=== PATIENT | female | born 1995 | race Caucasian/White ===

== ENCOUNTER 2017-11-08 15:14 | Emergency (ER) | END 2017-11-08 19:31 | disposition home or self-care (01) ==

== ENCOUNTER 2017-12-15 15:30 | Emergency (ER) | END 2017-12-16 00:10 | disposition home or self-care (01) ==

== ENCOUNTER 2018-06-11 02:30 | Inpatient (IN) | END 2018-06-11 21:25 | disposition home or self-care (01) | DRG 778 ==

== ENCOUNTER 2018-06-17 22:35 | Inpatient (IN) | END 2018-06-20 13:15 | disposition home or self-care (01) | DRG 775 ==

== ENCOUNTER 2018-11-28 06:56 | Emergency (ER) | payer MEDICAID ==
[~2018-11-28] VITALS: Wt 80.0 kg
[~2018-11-28 06:56] MED LIST: PREN-19 PO
[2018-11-28] MEDS ORDERED: SOD CHLORIDE 0.9% 1,000 ML IV STA (07:33)
[2018-11-28] MEDS ORDERED: ONDANSETRON 4 MG INJ IV STA (07:33)
[2018-11-28] MEDS ORDERED: KETOROLAC 30 MG INJ IV STA (07:33)
[2018-11-28] MEDS ORDERED: FAMO-96 PO (09:52)
[2018-11-28] MEDS ORDERED: ACET325T33 PO (09:52)
[2018-11-28 10:15] VITALS: BP 97/56; PULSE 77; RESP 20
--- NOTE | 2018-11-28 11:24 | ERD ---
ER Documentation Chief Complaint Chief Complaint ap x 1 week HPI 23-year-old female presenting with abdominal pain times 1 week. Denies medical problems. Patient has had vomiting. She denies any changes to urination. LNMP November 05. No medication for symptoms. Denies medical problems. NKDA. Surgical history denies. Social history denies ROS All systems reviewed and are negative except as per history of present illness. Medications Home Meds Active Scripts Famotidine* (Pepcid*) 20 Mg Tablet, 20 MG PO BID for 4 Days, #30 TAB Prov:SEBAS BRODY PA-C 11/28/18 Acetaminophen* (Tylenol*) 325 Mg Tablet, 2 TAB PO Q6 PRN for PAIN AND OR ARI VATED TEMP, #20 TAB Prov:SEBAS BRODY PA-C 11/28/18 Reported Medications Vit #76/Iron,Carb/FA (Prenatabs Rx Tablet) 1 Each Tablet, 1 EACH PO DAILY, TAB 06/10/18 Allergies Allergies: Coded Allergies: No Known Allergy (Unverified , 06/17/18) PMhx/Soc History of Surgery: No Anesthesia Reaction: No Hx Neurological Disorder: No Hx Respiratory Disorders: No Hx Cardiac Disorders: No Hx Psychiatric Problems: No Hx Miscellaneous Medical Probl: No Hx Alcohol Use: No Hx Substance Use: No Hx Tobacco Use: No Smoking Status: Never smoker FmHx Family History: No diabetes, No coronary disease, No other Physical Exam Vitals Vital Signs Date Temp Pulse Resp B/P (MAP) Pulse Ox O2 O2 Flow FiO2 Time Delivery Rate 11/28/18 98.3 77 20 97/56 (70) 98 Room Air 10:15 11/28/18 99.4 80 18 109/63 99 06:58 (78) Physical Exam GENERAL: The patient is well-appearing, well-nourished, in no acute distress HEENT: Atraumatic. Conjunctivae are pink. Pupils equal, round, and reactive to light. There is no scleral icterus. Tympanic membranes clear bilaterally. Oropharynx clear. NECK: C-spine is soft and supple. There is no meningismus. There is no cervical lymphadenopathy. CHEST: Clear to auscultation bilaterally. There are no rales, wheezes or rhonchi. HEART: Regular rate and rhythm. No murmurs, clicks, rubs or gallops. ABDOMEN: Normal active bowel sounds. No distention. Patient has tenderness to palpation of the right-sided region of the abdomen with no rebound tenderness. Result Diagram: 11/28/18 0741 11/28/18 0740 Results 24 hrs Laboratory Tests Test 11/28/18 07:40 11/28/18 07:41 11/28/18 07:50 Urine Color YELLOW Urine Clarity CLEAR Urine pH 5.0 Urine Specific [place] 1.016 Urine Ketones NEGATIVE mg/dL Urine Nitrite NEGATIVE mg/dL Urine Bilirubin NEGATIVE mg/dL Urine Urobilinogen NEGATIVE mg/dL Urine Leukocyte Esterase TRACE Pavel/ul Urine Microscopic RBC 1 /HPF Urine Microscopic WBC 1 /HPF Urine Squamous Epithelial Cells FEW /HPF Urine Hemoglobin NEGATIVE mg/dL Urine Glucose NEGATIVE mg/dL Urine Total Protein NEGATIVE mg/dl Sodium Level 141 mmol/L Potassium Level 4.0 mmol/L Chloride Level 107 mmol/L Carbon Dioxide Level 24 mmol/L Anion Gap 10 Blood Urea Nitrogen 11 mg/dl Creatinine 0.61 mg/dl Est Glomerular Filtrat > 60 mL/min Rate mL/min Glucose Level 101 mg/dl Calcium Level 9.4 mg/dl Total Bilirubin 0.2 mg/dl Direct Bilirubin 0.00 mg/dl Indirect Bilirubin 0.2 mg/dl Aspartate Amino 25 IU/L Transf (AST/SGOT) Alanine 22 IU/L Aminotransferase (ALT/SGPT) Alkaline Phosphatase 91 IU/L Total Protein 8.2 g/dl Albumin 4.4 g/dl Globulin 3.80 g/dl Albumin/Globulin Ratio 1.15 Lipase 157 U/L White Blood Count 7.7 10^3/ul Red Blood Count 5.06 10^6/ul Hemoglobin 14.2 g/dl Hematocrit 43.5 % Mean Corpuscular Volume 86.0 fl Mean Corpuscular Hemoglobin 28.1 pg Mean Corpuscular 32.6 g/dl Hemoglobin Concent Red Cell Distribution Width 14.2 % Platelet Count 234 10^3/UL Mean Platelet Volume 9.4 fl Immature Granulocytes % 0.100 % Neutrophils % 47.8 % Lymphocytes % 39.1 % Monocytes % 10.5 % Eosinophils % 2.2 % Basophils % 0.3 % Nucleated Red Blood Cells % 0.0 /100WBC Immature Granulocytes # 0.010 10^3/ul Neutrophils # 3.7 10^3/ul Lymphocytes # 3.0 10^3/ul Monocytes # 0.8 10^3/ul Eosinophils # 0.2 10^3/ul Basophils # 0.0 10^3/ul Nucleated Red Blood Cells # 0.0 10^3/ul POC Beta HCG, Qualitative NEGATIVE Current Medications Medications Dose Sig/Tonia Start Time Status Last (Trade) Ordered Route PRN Stop Time Admin Dose Reason Admin Sodium 1,000 ml @ Q1H STAT 11/28/18 DC 11/28/18 Chloride 1,000 mls/hr IV 07:33 07:55 11/28/18 08:32 Ondansetron 4 mg ONCE STAT 11/28/18 DC 11/28/18 HCl (Zofran IV 07:33 07:55 Inj) 11/28/18 07:35 Ketorolac 30 mg ONCE STAT 11/28/18 DC 11/28/18 Tromethamine IV 07:33 07:55 (Toradol) 11/28/18 07:35 Procedures/MDM DIAGNOSTIC IMAGING REPORT Patient: EDER DE LA ROSA : 1995 Age: 23 Sex: F MR #: [id number] DOS: 11/28/18 0733 Ordering MD: JORDEN BRODY PA-C Location: [facility] Room/Bed: PROCEDURE: CT Abdomen and Pelvis without contrast. CLINICAL INDICATION: Abdominal pain TECHNIQUE: CT of the abdomen and pelvis without IV contrast. Coronal and sagittal reformatted images. DICOM images are available. One or more of the following dose reduction techniques were used: automated exposure control, adjustment of the mA and/or kV according to patient size, use of iterative reconstruction technique. CTDI 9.2 mGy, DLP 486 mGy-cm. COMPARISON: None. FINDINGS: Lower thorax: Normal Liver: Normal Biliary: Normal gallbladder. No biliary dilatation. Pancreas: Normal Spleen: Normal Adrenal glands: Normal Genitourinary: No hydronephrosis or urinary calculi. Unremarkable urinary blad kimo. Vascular: No abdominal aortic aneurysm. Lymph nodes: No lymphadenopathy. Gastrointestinal: No bowel obstruction. Normal appendix. No diverticulosis, diverticulitis or colitis. Peritoneum: No free air, free fluid or abscess. Reproductive organs: Normal Musculoskeletal: Normal IMPRESSION: 1. Unremarkable CT of the abdomen and pelvis. 2. No mass, lymphadenopathy, or focal acute inflammatory process is identified. DIAGNOSTIC IMAGING REPORT Patient: EDER DE LA ROSA : 1995 Age: 23 Sex: F MR #: [id number] [facility] #: [id number] DOS: 11/28/18 0733 Ordering MD: JORDEN BRODY PA-C Location: [facility] Room/Bed: PROCEDURE: US Pelvis. CLINICAL INDICATION: pelvic pain TECHNIQUE: Multiple sonographic images of the pelvis were obtained utilizing transabdominal and endovaginal technique. The images were reviewed on a PACS workstation. COMPARISON: None. FINDINGS: The uterus is normal in size with a normal appearance of the myometrium. The uterus measures 6.7 x 3.9 x 4.6 cm. The endometrial stripe is heterogeneous in appearance and has the thickness of 14 mm. The ovaries are normal in size and echogenicity. Normal Doppler flow is identified in both ovaries. The right ovary measures 2.8 x 2.8 x 2.8 cm. The left ovary measures 2.6 x 1.4 x 2.1 cm. No free fluid is present within the pelvis. RPTAT: AA IMPRESSION: Slightly heterogeneous endometrium measuring 14 mm in thickness. Otherwise unremarkable. MDM: 23-year-old female complaining of abdominal pain. Patient's ultrasound and CT scan are within normal limits. Blood work and urine are stable. I have low suspicion for acute abdominal emergency. I do not feel that further workup is indicated. Patient is discharged strict ER precautions and told to follow-up with primary care. All questions answered at discharge Departure Diagnosis: Primary Impression: Abdominal pain Condition: Stable Patient Instructions: Abdominal Pain Referrals: [facility] YOU HAVE RECEIVED A MEDICAL SCREENING EXAM AND THE RESULTS INDICATE THAT YOU DO NOT HAVE A CONDITION THAT REQUIRES URGENT TREATMENT IN THE EMERGENCY DEPARTMENT. FURTHER EVALUATION AND TREATMENT OF YOUR CONDITION CAN WAIT UNTIL YOU ARE SEEN IN YOUR DOCTORS OFFICE WITHIN THE NEXT 1-2 DAYS. IT IS YOUR RESPONSIBILITY TO MAKE AN APPOINTMENT FOR FOLOW-UP CARE. IF YOU HAVE A PRIMARY DOCTOR --you should call your primary doctor and schedule an appointment IF YOU DO NOT HAVE A PRIMARY DOCTOR YOU CAN CALL OUR PHYSICIAN REFERRAL HOTLINE AT IF YOU CAN NOT AFFORD TO SEE A PHYSICIAN YOU CAN CHOSE FROM THE FOLLOWING [facility] [id number] [facility]. [facility] [address] [facility] [address] [facility] [address] [facility] [address] [facility] [address] Additional Instructions: FOLLOW UP WITH YOUR PRIMARY CARE PHYSICIAN TOMORROW.Return to this facility if you are not improving as expected. SEBAS BRODY PA-C Nov 28, 2018 11:24
== END 2018-11-28 10:22 | disposition home or self-care (01) ==
LOC: FTE 06:56
DX: R10.9 Unspecified abdominal pain (principal); R10.2 Pelvic and perineal pain
CPT/HCPCS: 36415; 74176; 76830; 76856; 80053; 81001; 81025; 83690; 85025; 96374; 96375; J1885; J2405; J7030; Z7502